=== PATIENT | female | born 1950 | race Caucasian/White ===

== ENCOUNTER 2019-09-09 13:24 | Inpatient (IN) ==
[2019-09-09] MEDS ORDERED: ALBUTEROL 2.5 MG/3 ML NEB RESP TX STA (13:38)
[2019-09-09] MEDS ORDERED: methylPREDNISolone SOD SUC 125 MG/2 ML VIAL IV STA (13:38)
[2019-09-09 13:48] LABS: Basophils % 0.1 % (0.0-0.8); Hematocrit 44.6 VOL% (35.7-47.0); Immature Granulocytes Absolute 0.22 #; Lymphocytes # 3.2 10*3/uL (1.4-4.0); Lymphocytes % 15.3 % (21.3-54.2); Mean Corpuscular HGB Conc 31.4 GM/DL (32-36); Mean Corpuscular Volume 90.1 FL (87-102); Monocytes % 8.6 % (1.7-12.7); Platelet Count 313 T/CUMM (130-400); Red Blood Count 4.95 MC/CUMM (3.8-5.5); Red Cell Distribution Width 13.9 % (9.3-17.3); White Blood Count 21.1 T/CUMM (4-12)
[2019-09-09 14:03] LABS: PT Patient Result 10.7 SECS (9.8-11.9); Partial Thromboplastin Time 23.5 SECS (23.9-33.8)
[2019-09-09 14:12] LABS: Albumin 3.1 G/DL (3.4-5.0); Bilirubin,Total 0.4 MG/DL (0.2-1.0); Calcium 8.7 MG/DL (8.5-10.1); Osmolality,Calculated 288.1 MOS/KG (273-304); Total Protein 6.5 G/DL (6.4-8.3)
[2019-09-09 14:14] LABS: Lymphocytes 13 % (20-55); Platelet Estimate Adequate; Reactive Lymphocytes Few; Segmented Neutrophils 76 % (50-85); Total Cells Counted 100
[2019-09-09] MEDS ORDERED: ACETAMINOPHEN 325 MG TABLET PO PRN (14:35)
[2019-09-09] MEDS ORDERED: GLUCAGON 1 MG VIAL IM PRN (14:35)
[2019-09-09] MEDS ORDERED: DEXTROSE 50% 25 GM/50 ML VIAL IV PRN (14:35)
[2019-09-09] MEDS ORDERED: hydrALAZINE 20 MG/1 ML VIAL IV PRN (14:35)
[2019-09-09] MEDS ORDERED: MORPHINE 4 MG/1 ML VIAL IV PRN (14:35)
[2019-09-09] MEDS ORDERED: ALBUTEROL 2.5 MG/3 ML NEB RESP TX PRN (15:09)
[2019-09-09] MEDS ORDERED: FLUTICASONE 50 MCG NASAL SPRAY 16 GM BOTTLE BOTH NARES PRN (15:09)
[2019-09-09] MEDS: SODIUM CHLORIDE 0.9% 1,000 ML IV SCH (16:58)
[2019-09-09] MEDS: methylPREDNISolone SOD SUC 125 MG/2 ML VIAL IV SCH ×2 (17:42→23:08)
[2019-09-09] MEDS: FLECAINIDE 50 MG TABLET PO SCH (17:43)
[2019-09-09] MEDS: INSULIN REGULAR 100 UNIT/ML SUBCUT SCH ×2 (17:55→21:08)
[2019-09-09] MEDS: ONDANSETRON 4 MG/2 ML VIAL IV PRN (17:56)
[2019-09-09] MEDS: AZITHROMYCIN INJ 500 MG in SODIUM CHLORIDE 0.9% 250 ML IV SCH (19:01)
[2019-09-09] MEDS ORDERED: HYDROXYCHLOROQUINE 200 MG TABLET PO SCH (21:00)
[2019-09-09] MEDS ORDERED: ENOXAPARIN 40 MG/0.4 ML SYRINGE SUBCUT SCH (21:00)
[2019-09-09] MEDS: PRAMIPEXOLE 0.25 MG TABLET PO SCH (21:06)
[2019-09-09] MEDS: APIXABAN 5 MG TABLET PO SCH (21:07)
[2019-09-09 22:04] LABS: Apearance,Urine CLEAR (Clear); Bilirubin,Urine Negative (Negative); Blood, Urine Small mg/dL (Negative); Glucose,Urine (UA) >=500 mg/dL (Negative); Hyaline Casts,Urine 1 /LPF (0-3); Ketones,Urine Negative (Negative); Mucus,Urine Occasional /LPF (Occasional); Nitrite,Urine Negative (Negative); Protein,Urine Negative; RBC,Urine 4 /HPF (0-4); Squamous Epithelial Cell,Urine Occasional /HPF (0-10); Urine Color Yellow (Yellow); Urine Specific Gravity 1.026 (1.001-1.035); Urine Urobilinogen < 2.0 EU/DL (0.2-1.0); WBC,Urine <1 /HPF (0-6)
[2019-09-10] MEDS: SODIUM CHLORIDE 0.9% 1,000 ML IV SCH ×4 (02:44→22:05)
[2019-09-10] MEDS: FLECAINIDE 50 MG TABLET PO SCH ×2 (02:51→15:12)
[2019-09-10 05:59] LABS: Basophils % 0.1 % (0.0-0.8); Hematocrit 38.9 VOL% (35.7-47.0); Hemoglobin 12.2 GM/DL (12.0-16.0); Immature Granulocytes % 0.6 %; Immature Granulocytes Absolute 0.09 #; Lymphocytes # 0.8 10*3/uL (1.4-4.0); Lymphocytes % 5.5 % (21.3-54.2); Mean Corpuscular HGB Conc 31.4 GM/DL (32-36); Mean Platelet Volume 9.6 FL (9.6-12.0); Monocytes % 0.8 % (1.7-12.7); Platelet Count 268 T/CUMM (130-400); Red Blood Count 4.32 MC/CUMM (3.8-5.5); Red Cell Distribution Width 13.7 % (9.3-17.3); White Blood Count 14.2 T/CUMM (4-12)
[2019-09-10 06:27] LABS: Band Neutrophils 1 % (0-10); Lymphocytes 9 % (20-55); Segmented Neutrophils 88 % (50-85); Total Cells Counted 100
[2019-09-10 06:28] LABS: Hypochromasia 1+; Microcytosis Slight
[2019-09-10 06:28] LABS: Calcium 7.9 MG/DL (8.5-10.1); Osmolality,Calculated 291.3 MOS/KG (273-304); Risk Ratio 2.15; Thyroid Stimulating Hormone 0.196 uIU/ml (0.358-3.74); VLDL CHOLESTEROL 10.6 MG/DL
[2019-09-10 06:29] LABS: Platelet Estimate Normal
[2019-09-10] MEDS: methylPREDNISolone SOD SUC 125 MG/2 ML VIAL IV SCH ×3 (06:44→23:34)
[2019-09-10] MEDS: ONDANSETRON 4 MG/2 ML VIAL IV PRN (07:54)
[2019-09-10] MEDS: traMADol 50 MG TABLET PO PRN (07:54)
[2019-09-10 08:53] LABS: Free T4 (Free Thyroxine) 0.91 NG/DL (0.76-1.46)
[2019-09-10] MEDS ORDERED: PANTOPRAZOLE 40 MG TABLET PO SCH (09:00)
[2019-09-10] MEDS ORDERED: predniSONE 5 MG TABLET PO SCH (09:00)
[2019-09-10] MEDS: INSULIN REGULAR 100 UNIT/ML SUBCUT SCH ×4 (09:07→21:16)
[2019-09-10] MEDS: CITALOPRAM 20 MG TABLET PO SCH (09:09)
[2019-09-10] MEDS: DILTIAZEM CD 180 MG CAPSULE PO SCH (09:09)
[2019-09-10] MEDS: CHOLECALCIFEROL 1,000 UNIT TABLET PO SCH (09:10)
[2019-09-10] MEDS: ROFLUMILAST 500 MCG TABLET PO SCH (09:10)
[2019-09-10] MEDS: MONTELUKAST 10 MG TABLET PO SCH (09:10)
[2019-09-10] MEDS: APIXABAN 5 MG TABLET PO SCH ×2 (09:10→21:16)
[2019-09-10] MEDS: PANTOPRAZOLE 40 MG TABLET PO SCH (09:10)
[2019-09-10] MEDS: ALPRAZolam 0.25 MG TABLET PO SCH ×2 (09:25→21:16)
[2019-09-10] MEDS ORDERED: NAPROXEN 500 MG TABLET PO ONE (12:30)
[2019-09-10] MEDS ORDERED: PROMETHAZINE 25 MG TABLET PO ONE (12:30)
[2019-09-10] MEDS: AZITHROMYCIN INJ 500 MG in SODIUM CHLORIDE 0.9% 250 ML IV SCH (18:00)
[2019-09-10] MEDS ORDERED: AZITHROMYCIN INJ 500 MG in SODIUM CHLORIDE 0.9% 250 ML IV SCH (19:30)
[2019-09-10] MEDS: PRAMIPEXOLE 0.25 MG TABLET PO SCH (21:16)
[2019-09-11] MEDS: traMADol 50 MG TABLET PO PRN (00:10)
[2019-09-11] MEDS: ONDANSETRON 4 MG/2 ML VIAL IV PRN (00:12)
[2019-09-11] MEDS: FLECAINIDE 50 MG TABLET PO SCH (03:28)
[2019-09-11] MEDS: SODIUM CHLORIDE 0.9% 1,000 ML IV SCH (06:18)
[2019-09-11] MEDS: methylPREDNISolone SOD SUC 125 MG/2 ML VIAL IV SCH (06:20)
[2019-09-11 06:21] LABS: Basophils # 0.1 10*3/uL (0.0-0.2); Basophils % 0.2 % (0.0-0.8); Hemoglobin 11.1 GM/DL (12.0-16.0); Immature Granulocytes % 0.9 %; Immature Granulocytes Absolute 0.27 #; Lymphocytes # 0.8 10*3/uL (1.4-4.0); Lymphocytes % 2.7 % (21.3-54.2); Mean Corpuscular HGB Conc 30.8 GM/DL (32-36); Mean Corpuscular Volume 91.4 FL (87-102); Mean Platelet Volume 9.9 FL (9.6-12.0); Neutrophils % 95.2 % (38.7-73.9); Platelet Count 231 T/CUMM (130-400); Red Blood Count 3.94 MC/CUMM (3.8-5.5); Red Cell Distribution Width 13.7 % (9.3-17.3)
[2019-09-11 06:48] LABS: Calcium 7.5 MG/DL (8.5-10.1)
[2019-09-11 07:27] LABS: Hypochromasia 1+; Lymphocytes 3 % (20-55); Microcytosis 1+; Platelet Estimate Adequate; Segmented Neutrophils 96 % (50-85); Total Cells Counted 100
[2019-09-11] MEDS: CITALOPRAM 20 MG TABLET PO SCH (09:14)
[2019-09-11] MEDS: ROFLUMILAST 500 MCG TABLET PO SCH (09:14)
[2019-09-11] MEDS: ALPRAZolam 0.25 MG TABLET PO SCH (09:14)
[2019-09-11] MEDS: MONTELUKAST 10 MG TABLET PO SCH (09:14)
[2019-09-11] MEDS: PANTOPRAZOLE 40 MG TABLET PO SCH (09:15)
[2019-09-11] MEDS: APIXABAN 5 MG TABLET PO SCH (09:15)
[2019-09-11] MEDS: CHOLECALCIFEROL 1,000 UNIT TABLET PO SCH (09:15)
[2019-09-11] MEDS: DILTIAZEM CD 180 MG CAPSULE PO SCH (09:15)
[2019-09-11] MEDS: INSULIN REGULAR 100 UNIT/ML SUBCUT SCH ×2 (09:15→12:15)
[2019-09-11 11:29] VITALS: BP 129/52
== END 2019-09-11 14:15 | disposition home or self-care (01) | DRG 202 ==
LOC: EDBD → EDUNIT# → N.ED 13:24 → N.EDINP 13:24 → N.3E 15:23
PROVIDERS: ADMIT Internal Medicine; ATTEND Internal Medicine